=== PATIENT | female | born 1965 | race Caucasian/White ===

== ENCOUNTER 2023-02-03 15:01 | Outpatient (CLI) | payer MEDICAID, SELFPAY ==
--- NOTE | ~2023-02-03 | MR_ITS ---
MRI of the lumbar spine Clinical History: Back pain, sciatica Technique: Axial T2-weighted images, and sagittal T1-weighted, T2-weighted, and T2 fat-sat images wer e acquired. Findings: There is extensive marrow edema about the L3-L4 disc space, corresponding hypointense T1 ma rrow signal. Apparent developing Schmorl's nodes at the inferior endplate of L3, a smaller one at the superior endplate of L4. Remaining osseous structures are unremarkable. No other abnormal marrow sig nal seen. No fracture or subluxation evident. At L1-L2 and L2-L3, there is no disc bulge or herniation. No spinal canal stenosis or neural foramina l narrowing at these levels. At L3-L4, there is moderate to advanced degenerative disc narrowing. There is minimal disc bulge with mild to moderate facet arthropathy. No central canal stenosis. There is mild bilateral neural forami nal narrowing. At L4-L5, there is moderate degenerative disc narrowing. There is diffuse disc bulge with moderate to advanced facet arthropathy. No central canal stenosis. There is severe bilateral neural foraminal na rrowing. At L5-S1, there is disc bulge and probable central disc protrusion with mild to moderate facet arthro suzette. No central canal stenosis. There is severe bilateral neural foraminal compromise. Paravertebral soft tissues are unremarkable. Impression: Findings most consistent with acute Schmorl's node developing about the L3-L4 disc space, as detailed above. Early osteomyelitis/discitis would be a potential alternative consideration, though this is f elt to be much less likely based on the overall imaging appearance. Severe bilateral neural foraminal narrowing at L4-L5 and L5-S1, with additional underlying degenerati ve changes, as detailed above. Reviewed, dictated and finalized at [facility]. Impression: Findings most consistent with acute Schmorl's node developing about the L3-L4 d isc space, as detailed above. Early osteomyelitis/discitis would be a potential alternative consideration, though this is felt to be much less likely based on the overall imaging appearance. Severe bilateral neural foraminal narrowing at L4-L5 and L5-S1, with additional underlying degenerative changes, as detailed above.
== END 2023-02-03 15:02 | disposition home or self-care (01) ==
PROVIDERS: PCP Family Medicine Sports Medicine; Visit Provider Family Medicine Sports Medicine
DX: M54.42 Lumbago with sciatica, left side (principal); G89.29 Other chronic pain
CPT/HCPCS: 72148